=== PATIENT | male | born 1995 | race African-American/Black ===

== ENCOUNTER 2025-01-16 01:00 | Emergency (ER) | payer SELFPAY ==
[~2025-01-16] VITALS: Ht 177.8 cm; Wt 106.0 kg
[2025-01-16 01:07] VITALS: O2SAT 98
[2025-01-16] MEDS: AMOXICILLIN/POTASSIUM CLAVULANATE 875/125MG TAB PO ONE (02:09)
[2025-01-16] MEDS: TETANUS, DIPHTHERIA, PERTUSSIS VAC/PF 0.5ML (>10YR OLD) IM ONE (02:10)
[2025-01-16 02:38] LABS: CREATININE 1.4 mg/dL (0.6-1.3); UREA NITROGEN BLOOD 15 mg/dL (9-23)
[2025-01-16 02:40] LABS: ASPARTATE AMINOTRANSFERASE 41 IU/L (<34); BILIRUBIN TOTAL 0.4 mg/dL (0.1-1.0); PROTEIN TOTAL 7.6 g/dL (6.0-8.3)
[2025-01-16 03:23] LABS: HEPATITIS A AB IGM NEGATIVE (Negative)
[2025-01-16 03:24] LABS: HEPATITIS B CORE AB IGM NEGATIVE (Negative); HEPATITIS C AB NON REACTIVE (Neg) (Negative)
[2025-01-16] MEDS ORDERED: EMTR1TAB20 MT (03:26)
[2025-01-16] MEDS ORDERED: AMOX1TAB16 MT (03:26)
[2025-01-16] MEDS ORDERED: DOLU50TA MT (03:26)
[2025-01-16] MEDS ORDERED: BO1 TP (03:26)
[2025-01-16 03:47] VITALS: BP 114/46; PULSE 94; RESP 18; TEMP 36.6; O2SAT 98
== END 2025-01-16 03:47 | disposition home or self-care (01) ==
LOC: ER 01:00
DX: S50.871A Other superficial bite of right forearm, initial encounter (principal); Y04.1XXA Assault by human bite, initial encounter; X58.XXXA Exposure to other specified factors, initial encounter; Y93.89 Activity, other specified; Y92.89 Other specified places as the place of occurrence of the external cause; Y99.8 Other external cause status
CPT/HCPCS: 36415; 80053; 86705; 86709; 87340; 90471; 90715; 99283